=== PATIENT | male | born 1965 | race Hispanic/Latino ===

== ENCOUNTER 2020-03-08 19:32 | Emergency (ER) | payer OTHER ==
--- NOTE | 2020-03-08 20:48 | ER ---
Nurse's Notes [facility] Name: Rory Erazo Age: 54 yrs Sex: Male : 1965 Arrival Date: 03/08/2020 Time: 19:33 Bed 8 Private MD: Diagnosis: Bipolar disorder, current episode mixed, mild Presentation: 03/08 19:35 Chief complaint: EMS states: family called to have patient have a psych evaluation in the ER. Pt reportedly takes Depakote and Risperidone, but has been off his meds for 3 months. Coronavirus screen: Proceed with normal triage. Patient denies a cough. Patient denies shortness of breath or difficulty breathing. Patient denies measured and/or subjective temperature greater than 100.4F prior to today's visit. Patient denies travel on a cruise ship or to a country the [facility] currently lists as an affected area. Patient denies contact with known and/or suspected case of COVID-19. Ebola Screen: Patient denies exposure to infectious person. Patient denies travel to an Ebola-affected area in the 21 days before illness onset. Initial Sepsis Screen: Does the patient meet any 2 criteria? No. Patient's initial sepsis screen is negative. Does the patient have a suspected source of infection? No. Patient's initial sepsis screen is negative. Risk Assessment: Do you want to hurt yourself or someone else? Patient reports no desire to harm self or others. Note DENIES HOMICIDAL/ SUICIDAL IDEATIONS. Onset of symptoms is unknown. 19:35 Method Of Arrival: EMS: [facility] 19:35 Acuity: TYSON 3 Historical: - Allergies: 19:43 No Known Allergies; - PMHx: 19:43 Bipolar disorder; Schizophrenia; - Immunization history:: Adult Immunizations unknown. - Family history:: not pertinent. - Social history:: Smoking status: Patient reports the use of cigarette tobacco products, Patient uses alcohol, on a daily basis. admits to "couple of beers" a day. street drugs, marijuana, Patient/guardian denies using. - Hospitalizations: : No recent hospitalization is reported. Screenin:00 Abuse screen: Denies threats or abuse. Denies injuries from another. Nutritional wh screening: No deficits noted. Tuberculosis screening: No symptoms or risk factors identified. Fall Risk None identified. Assessment: 19:50 General: Appears in no apparent distress. Behavior is calm, cooperative. Pain: Denies pain. Neuro: Level of Consciousness is awake, alert, obeys commands, Oriented to person, place, time, Reports HX of Bipolar and Schizophrenia. Cardiovascular: Capillary refill < 3 seconds. Respiratory: Airway is patent Respiratory effort is even, unlabored, Respiratory pattern is regular, symmetrical. GI: Abdomen is flat, non-distended. : No signs and/or symptoms were reported regarding the genitourinary system. EENT: No signs and/or symptoms were reported regarding the EENT system. Derm: Skin is intact, is healthy with good turgor, Skin is pink, warm \\T\\ dry. normal. Musculoskeletal: Circulation, motion, and sensation intact. 21:00 Reassessment: Patient appears in no apparent distress at this time. No changes from previously documented assessment. Patient and/or family updated on plan of care and expected duration. Pain level reassessed. Vital Signs: 19:35 BP 135 / 87; Pulse 84; Resp 17; Temp 99.0; Pulse Ox 96% on R/A; Weight 58.06 kg; Height ss 5 ft. 5 in. (165.10 cm); Pain 0/10; 21:03 BP 135 / 85; Pulse 18; Resp 65; Pulse Ox 98% on R/A; oe 19:35 Body Mass Index 21.30 (58.06 kg, 165.10 cm) ED Course: 19:33 Patient arrived in ED. cf2 19:35 Zuleika Orta is Primary Nurse. 19:40 Darío Tai MD is Attending Physician. rn 19:43 Triage completed. ss 19:43 Arm band placed on right wrist. 20:00 Patient has correct armband on for positive identification. Bed in low position. Call light in reach. Side rails up X 1. Pulse ox on. NIBP on. 21:03 No provider procedures requiring assistance completed. Patient did not have IV access during this emergency room visit. Administered Medications: No medications were administered Outcome: 20:47 Discharge ordered by . rn 21:03 Discharged to home ambulatory. 21:03 Condition: stable 21:03 Discharge instructions given to patient, Instructed on discharge instructions, follow up and referral plans. 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 Signatures: Darío Tai MD MD rn Smirch, Shelby, RN RN Raad Bowie Zuleika Orta Howard Chaves cf2 Corrections: (The following items were deleted from the chart) : 20:50 General: Appears in no apparent distress. Behavior is calm, cooperative, [facility] : 20:50 Pain: Denies pain. [facility] : 20:50 Neuro: Level of Consciousness is awake, alert, obeys commands, Oriented to person, place, time, Reports HX of Bipolar and Schizophrenia. : 20:50 Cardiovascular: Capillary refill < 3 seconds [facility] : 20:50 Respiratory: Airway is patent Respiratory effort is even, unlabored, Respiratory wh pattern is regular, symmetrical, : 20:50 GI: Abdomen is flat, non-distended, [facility] : 20:50 : No signs and/or symptoms were reported regarding the genitourinary system. [facility] : 20:50 EENT: No signs and/or symptoms were reported regarding the EENT system. [facility] : 20:50 Derm: Skin is intact, is healthy with good turgor, Skin is pink, warm \\T\\ dry. normal, : 20:50 Musculoskeletal: Circulation, motion, and sensation intact. [facility]
--- NOTE | 2020-03-08 20:48 | EDPHYS ---
Physician Documentation [facility] Name: Rory Erazo Age: 54 yrs Sex: Male : 1965 Arrival Date: 03/08/2020 Time: 19:33 Bed 8 Private MD: ED Physician Darío Tai HPI: 03/08 19:45 This 54 yrs old Male presents to ER via EMS with complaints of Bipolar Episode.rn 19:45 Onset: The symptoms/episode began/occurred at an unknown time. Severity of symptoms: At rn their worst the symptoms were mild in the emergency department the symptoms are unchanged. The patient has experienced similar episodes in the past, chronically. Per report, family called 911 for psychiatric evaluation, not suicidal/homicidal, reports knows has bipolar, takes his depakote and risperidone, sometimes forgets it but then takes in morning. Also reports smoke marijuana daily as well as ETOH. Does not have dangerous thoughts towards self or others. Reports feeling a little frustrated lately but says has been concerned of niece's knee injury. Denies overdose or drug use today.. Historical: - Allergies: 19:43 No Known Allergies; ss - PMHx: 19:43 Bipolar disorder; Schizophrenia; ss - Immunization history:: Adult Immunizations unknown. - Family history:: not pertinent. - Social history:: Smoking status: Patient reports the use of cigarette tobacco products, Patient uses alcohol, on a daily basis. admits to "couple of beers" a day. street drugs, marijuana, Patient/guardian denies using. - Hospitalizations: : No recent hospitalization is reported. ROS: 19:45 Constitutional: Negative for fever, chills, and weight loss, Eyes: Negative for injury, rn pain, redness, and discharge, Neck: Negative for injury, pain, and swelling, Cardiovascular: Negative for chest pain, palpitations, and edema, Respiratory: Negative for shortness of breath, cough, wheezing, and pleuritic chest pain, Abdomen/GI: Negative for abdominal pain, nausea, vomiting, diarrhea, and constipation, Back: Negative for injury and pain, MS/Extremity: Negative for injury and deformity, Skin: Negative for injury, rash, and discoloration, Neuro: Negative for headache, weakness, numbness, tingling, and seizure, Psych: Negative for suicide ideation, homicidal ideation Exam: 19:45 Constitutional: This is a well developed, well nourished patient who is awake, alert, rn and in no acute distress. Head/Face: Normocephalic, atraumatic. ENT: MMM Neck: Trachea midline, no thyromegaly or masses palpated, and no cervical lymphadenopathy. Supple, full range of motion without nuchal rigidity, or vertebral point tenderness. No Meningismus. Cardiovascular: Regular rate and rhythm. No pulse deficits. Respiratory: No increased work of breathing, no retractions or nasal flaring. Abdomen/GI: soft, non-tender MS/ Extremity: Pulses equal, no cyanosis. Neurovascular intact. Full, normal range of motion. Equal circumference. Neuro: Awake and alert, GCS 15, oriented to person, place, time, and situation. Cranial nerves II-XII grossly intact. Motor strength 5/5 in all extremities. Sensory grossly intact. Cerebellar exam normal. Psych: Awake, alert, with orientation to person, place and time. + fast pressured speech but easily redirectable, not responding to internal stimuli. Pleasant, polite. Vital Signs: 19:35 BP 135 / 87; Pulse 84; Resp 17; Temp 99.0; Pulse Ox 96% on R/A; Weight 58.06 kg; Height ss 5 ft. 5 in. (165.10 cm); Pain 0/10; 21:03 BP 135 / 85; Pulse 18; Resp 65; Pulse Ox 98% on R/A; oe 19:35 Body Mass Index 21.30 (58.06 kg, 165.10 cm) ss MDM: 19:40 Patient medically screened. rn 20:45 Differential diagnosis: bipolar disorder. Data reviewed: vital signs, nurses notes, and rn as a result, I will discharge patient. Counseling: I had a detailed discussion with the patient and/or guardian regarding: the historical points, exam findings, and any diagnostic results supporting the discharge/admit diagnosis, the need for outpatient follow up, to return to the emergency department if symptoms worsen or persist or if there are any questions or concerns that arise at home. Special discussion: I discussed with the patient/guardian in detail that at this point there is no indication for admission to the hospital. It is understood, however, that if the symptoms persist or worsen the patient needs to return immediately for re-evaluation. Based on the history and exam findings, there is no indication for further emergent testing or inpatient evaluation. I discussed with the patient/guardian the need to see the psychiatrist for further evaluation of the symptoms. ED course: Pt stable, normal vitals, no acute medical complaints, normal exam, no suicidal/homicidal ideations, pt wants to go home, plans to stop smoking and drinking after we determined not helping his bipolar disorder. Return precautions given and understood. . 20:48 Counseling: I had a detailed discussion with the patient and/or guardian regarding: rn smoking cessation. Administered Medications: No medications were administered Disposition: 03/08/20 20:47 Discharged to Home. Impression: Bipolar disorder, current episode mixed, mild. - Condition is Stable. - Discharge Instructions: Bipolar Disorder. - Medication Reconciliation Form, Thank You Letter, Antibiotic Education, Prescription Opioid Use form. - Follow up: Private Physician; When: As needed; Reason: Recheck today's complaints, Re-evaluation by your physician. - Problem is chronic. - Symptoms have improved. Signatures: Darío Tai MD MD rn Smirch, Shelby, RN RN Zuleika Orta Corrections: (The following items were deleted from the chart) 21:14 20:47 03/08/2020 20:47 Discharged to Home. Impression: Bipolar disorder, current wh episode mixed, mild. Condition is Stable. Forms are Medication Reconciliation Form, Thank You Letter, Antibiotic Education, Prescription Opioid Use. Follow up: Private Physician; When: As needed; Reason: Recheck today's complaints, Re-evaluation by your physician. Problem is chronic. Symptoms have improved. rn
[2020-03-08 21:25] VITALS: TEMP 99
[2020-03-08 21:27] VITALS: BP 135/85; O2SAT 98
== END 2020-03-08 21:14 | disposition home or self-care (01) ==
LOC: ER 19:32
DX: F31.61 Bipolar disorder, current episode mixed, mild (principal); F17.210 Nicotine dependence, cigarettes, uncomplicated
CPT/HCPCS: 99283

== ENCOUNTER 2020-03-19 16:37 | Emergency (ER) | payer OTHER ==
[2020-03-19 17:07] LABS: Absolute Lymphocytes (CBC) 1.2 K/uL (0.7-4.9); Basophils % 0.2 % (0-1.3); Hematocrit 40.8 % (39.6-49.0); Lymphocytes % 13.4 % (15.3-44.8); MPV 10.7 fL (7.6-11.3); RBC Red Blood Cell Count 4.21 M/uL (4.33-5.43)
[2020-03-19 17:27] LABS: ALT/SGPT 29 U/L (12-78); AST/SGOT 40 U/L (15-37); Albumin 3.9 g/dL (3.4-5.0); Alkaline Phosphatase 63 U/L (45-117); BUN Blood Urea Nitrogen 6 mg/dL (7-18); Bicarbonate 24 mmol/L (21-32); Bilirubin Direct 0.2 mg/dL (0-0.2); Bilirubin Total 0.8 mg/dL (0.2-1.0); Glucose Level 90 mg/dL (74-106); Potassium 3.4 mmol/L (3.5-5.1); Protein, Total 7.2 g/dL (6.4-8.2); Sodium Level 140 mmol/L (136-145)
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
[2020-03-19 19:44] VITALS: BP 122/94; TEMP 98.2; O2SAT 97
--- NOTE | 2020-03-20 07:24 | EKG ---
Test Date: 2020-03-19 Test Time: 17:06:11 Simplex Operator: CE MEASUREMENT RESULTS: Intervals: Rate: 64 GA: 164 QRSD: 110 QT: 426 QTc: 439 [place]: P: 76 GA: 164 QRS: 1 T: 65 INTERPRETIVE STATEMENTS: Normal sinus rhythm Normal ECG No previous ECG available for comparison Electronically Signed On 03-20-20 07:23:00 CDT by Charles Hernandez
== END 2020-03-19 18:10 | disposition home or self-care (01) ==
LOC: ER 16:37
DX: F31.9 Bipolar disorder, unspecified (principal); V49.40XA Driver injured in collision with unspecified motor vehicles in traffic accident, initial encounter; F17.210 Nicotine dependence, cigarettes, uncomplicated
CPT/HCPCS: 36415; 80048; 80076; 80320; 80329; 85025; 93005; 99284